=== PATIENT | female | born 1975 | race African-American/Black ===

== ENCOUNTER 2017-08-16 17:44 | Emergency (ER) | payer BC ==
[~2017-08-16] VITALS: Ht 162.6 cm; Wt 103.4 kg
[2017-08-16] MEDS ORDERED: HYDROCHLOROTHIA25 MG PO (21:46)
== END 2017-08-16 22:05 | disposition home or self-care (01) ==
LOC: FSED 17:44
DX: M79.622 Pain in left upper arm (principal); M25.522 Pain in left elbow; M79.632 Pain in left forearm; I10 Essential (primary) hypertension; E66.9 Obesity, unspecified
CPT/HCPCS: 71046; 80053; 83880; 84484; 85025; 85379; 93005; 99284